=== PATIENT | female | born 2000 | race Caucasian/White ===

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

== ENCOUNTER 2024-05-27 15:58 | Outpatient (CLI) | payer OTHER | END 2024-05-27 15:59 | disposition home or self-care (01) | LOC: SCSRAD 15:58 | PROVIDERS: ATTEND Chiropractor | DX: M54.50 Low back pain, unspecified (principal); M54.6 Pain in thoracic spine; M53.86 Other specified dorsopathies, lumbar region | CPT/HCPCS: 72072; 72100 ==